=== PATIENT | male | born 1990 | race Two or more races ===

== ENCOUNTER 2017-03-02 14:07 | Emergency (ER) | payer MEDICAID ==
[~2017-03-02] VITALS: Ht 177.8 cm; Wt 60.4 kg
[2017-03-02] MEDS ORDERED: DIPHENHYDRAMINE 50 MG/ML, 1ML IVPush ONE (14:30)
[2017-03-02] MEDS ORDERED: METOCLOPRAMIDE 5 MG/ML, 2ML IVPush ONE (14:30)
[2017-03-02] MEDS ORDERED: MAALOX/HYOSCYAMINE/LIDOCAINE 45 ML BTL PO ONE (14:30)
[2017-03-02] MEDS ORDERED: SODIUM CHLORIDE 0.9% 1,000ML IVBOLUS ONE ×2 (14:30)
[2017-03-02] MEDS ORDERED: KETOROLAC 30 MG/1 ML IVPush ONE (14:30)
[2017-03-02] MEDS ORDERED: SODIUM CHLORIDE FLUSH 10ML SYR IVF ONE ×2 (14:30)
[2017-03-02] MEDS ORDERED: DIPHENHYDRAMINE 50 MG/ML, 1ML ONE (14:47)
[2017-03-02] MEDS ORDERED: KETOROLAC 30 MG/1 ML ONE (14:47)
[2017-03-02] MEDS ORDERED: MAALOX/HYOSCYAMINE/LIDOCAINE 45 ML BTL ONE (14:48)
[2017-03-02] MEDS ORDERED: METOCLOPRAMIDE 5 MG/ML, 2ML ONE (14:48)
[2017-03-02] MEDS ORDERED: MORPHINE SULFATE 4 MG/ML, 1ML ONE (14:49)
[2017-03-02] MEDS ORDERED: morphine SULFATE 10 MG/ML, 1ML IVPush ONE (15:00)
[2017-03-02 15:09] LABS: HEMATOCRIT 47.2 % (39.2-51.8); HEMOGLOBIN 15.7 g/dL (13.7-18.0); WHITE BLOOD COUNT 9.8 x10^3/uL (3.4-10)
[2017-03-02 15:16] LABS: ASPARTATE AMINO TRANSFERASE 17 U/L (15-37); BLOOD UREA NITROGEN 8 mg/dL (7-18)
[2017-03-02 18:12] VITALS: BP 122/74
== END 2017-03-02 18:14 | disposition home or self-care (01) ==
LOC: ED 17:33
DX: R10.13 Epigastric pain (principal); F12.10 Cannabis abuse, uncomplicated
CPT/HCPCS: 36415; 80053; 83690; 85025; 86677; 96361; 96374; 96375; 99285; J1200; J1885; J2270; J2765; J7030